=== PATIENT | female | born 1980 | race Caucasian/White ===

== ENCOUNTER 2019-05-20 13:01 | Emergency (ER) | payer OTHER ==
[~2019-05-20] VITALS: Ht 157.5 cm; Wt 59.0 kg
[2019-05-20] MEDS ORDERED: MEDROL DOSPAK21 TA1 PO (14:13)
[2019-05-20] MEDS ORDERED: ROBAXIN 750 MG750 MG PO (14:13)
[2019-05-20 14:22] VITALS: BP 115/64
== END 2019-05-20 14:22 | disposition home or self-care (01) ==
LOC: M.ERS 13:01
DX: S13.4XXA Sprain of ligaments of cervical spine, initial encounter (principal); M54.12 Radiculopathy, cervical region; Z88.5 Allergy status to narcotic agent; Z88.6 Allergy status to analgesic agent; V89.2XXA Person injured in unspecified motor-vehicle accident, traffic, initial encounter; Y93.89 Activity, other specified; Y92.89 Other specified places as the place of occurrence of the external cause; Y99.8 Other external cause status